=== PATIENT | female | born 1970 | race Two or more races ===

== ENCOUNTER → 2024-01-07 15:08 | Outpatient (REF) | payer OTHER, SELFPAY | LOC: WDC 15:08 | PROVIDERS: ATTENDING PHYSICIAN Obstetrics & Gynecology Gynecology; FAMILY PHYSICIAN Family Medicine | DX: Z12.31 Encounter for screening mammogram for malignant neoplasm of breast (principal) | CPT/HCPCS: 77063; 77067 ==

== ENCOUNTER → 2024-06-21 09:40 | Outpatient (REF) | payer OTHER, SELFPAY | LOC: RST 09:40 | PROVIDERS: ATTENDING PHYSICIAN Family Medicine | DX: R13.12 Dysphagia, oropharyngeal phase (principal); M25.561 Pain in right knee; M25.562 Pain in left knee | CPT/HCPCS: 73564; 74230; 92611 ==

== ENCOUNTER 2024-09-09 06:49 | Emergency (ER) | payer OTHER, SELFPAY ==
[2024-09-09 06:52] VITALS: BP 136/84
[2024-09-09 07:30] VITALS: BMI 25.3
--- NOTE | 2024-09-09 07:31 | ED.GENMED ---
History of Present Illness
General
Chief Complaint: Urinary Symptoms
Source: patient
Exam Limitations: none
Time Seen by Provider: 09/09/24 07:28
Nursing documentation reviewed up to this point in time: agreed with
History of Present Illness
History of Present Illness:
53-year-old female with history of palpitations on metoprolol 50 mg daily presents for burning with urination and blood in her urine since last night. She has experienced mild suprapubic pain but not there now. Denies nausea or vomiting. Denies
fever or chills.
Past History
Past History
ED Past Medical History: Arrthythmia (Tachycardia)
Social History
Tobacco: Non-smoker
Alcohol: None
Personal:
Living: with family
Employment: Not employed
Review of Systems
Review of Systems
Allergies reviewed?: Yes
All Other Systems: ROS reviewed and negative except as documented in HPI and ROS
Constitutional: Denies fever or chills
Respiratory: Denies trouble breathing
Cardiac: Denies chest pain
ABD/GI: Denies abdominal pain, nausea, vomiting, diarrhea or anorexia
: Reports dysuria and bleeding (Bloody urine); Denies frequency, flank pain, difficulty voiding or urgency
Musculoskeletal: Reports no symptoms
Skin: Reports no symptoms
Phy Exam
Physical Exam
Physical Exam:
GENERAL: No acute distress. A&Ox3.
CONSTITUTIONAL: Afebrile.
EYES: clear, conjunctivae normal
ENMT: moist mucus membranes
RESPIRATORY: Regular respirations, nonlabored, lungs clear.
CARDIOVASCULAR: Regular rate and rhythm, no murmurs, no rubs.
GI: Soft, nontender, normal BS
MUSCULOSKELETAL: Moves with ease. Well perfused.
SKIN: Warm, dry, pink
PSYCH: Normal mood and affect. Well kept, interactive and appropriate
NEUROLOGIC: Awake, alert and oriented. No focal neurological deficits
Course
Orders/Labs/Results
Orders:
Orders
09/09/24 07:26
Urinalysis Reflex To Culture Urgent
Date Specimen was Collected: 09/09/24
Time Specimen was Collected: :24
Urine Microscopic Reflex Cult Urgent
Urine Culture Urgent
ALIN Source: U
Specimen Description:
Date Specimen was Collected: 09/09/24
Time Specimen was Collected: :24
09/09/24 08:04
CT Abd/pel Without Iv Or Oral Urgent
Comment:
Reason For Exam: Hematuria, left abdominal pain
Abnormal Lab Results
09/09/24
07:26
Ur Occult Blood Reflex 4+ A
(Negative)
Leukocyte Esterase Rfl 2+ A
(Negative)
Urine WBC (Reflex) 16-20 A /HPF
(0-5)
Urine Albumin (Reflex) 1+ A
(Neg - Trace)
Vital Signs
Initial and Last Documented VS:
Initial Vital Signs
Temp Pulse Resp BP Pulse Ox
98.5 F 101 18 136/84 100
09/09/24 06:52 09/09/24 06:52 09/09/24 06:52 09/09/24 06:52 09/09/24 06:52
Last Documented Vital Signs
Temp Pulse Resp BP Pulse Ox
98.5 F 91 22 119/77 99
09/09/24 06:52 09/09/24 08:01 09/09/24 08:01 09/09/24 08:01 09/09/24 08:01
MDM/Problems Addressed
Differential Diagnosis Includes:
UTI, kidney stone
MDM/Problems Addressed:
53-year-old female with history of palpitations on metoprolol 50 mg daily presents for burning with urination and blood in her urine since last night. She has experienced mild suprapubic pain but not there now. Denies nausea or vomiting. Denies
fever or chills.
Afebrile, NAD
9:00 AM:
UA shows plus for occult blood, negative nitrites 2+ leukocytes, 16-[address] abdomen pelvis radiology report read: IMPRESSION:
Urinary bladder wall thickening for which correlation with a urinalysis is recommended. No CT evidence for nephroureterolithiasis or hydronephrosis.
Rx for nitrofurantoin sent to her pharmacy
*Critical Care Note
Total Time (30-74mins, 75-104mins- exclusive of procedures): Not Applicable
ED Attending Note
-
Portions of this chart may have been created with voice recognition software.� Occasional wrong word or��sound alike� substitutions may have occurred due to the inherent limitations of voice recognition software.
Discharge Plan
Departure
Patient Disposition: Home (Routine Discharge)
Date of Disposition: 09/09/24
Time of Disposition: 09:07
Patient with high blood pressure during this ER visit?: No
Condition: Good
Discharge Problem:
Acute UTI
Instructions: Urinary Tract Infection, Adult (DC), Blood in the Urine (Hematuria), Adult (DC)
Prescriptions:
New
nitrofurantoin macrocrystal 100 mg capsule
100 mg PO BID 5 Days Qty: 10 0RF
No Action
pantoprazole 40 mg Tablet,Delayed Release (Dr/Ec)
40 mg PO DAILY
metoprolol succinate 25 mg Tablet Extended Release 24 Hr
25 mg PO DAILY
Referrals:
Yancy Anderson DO [Family Provider] - Call in 1-3 days for appt
Activity Restrictions/Additional Instructions:
As we discussed, you have a urinary tract infection
I sent a prescription to your pharmacy for the antibiotic nitrofurantoin 100 mg to take twice a day for 5 days
Doctor if your symptoms are not 100% improved within the next week
Return here immediately for fever above 100.5 that is not relieved with Tylenol or ibuprofen, vomiting, worsening pain, chills or feeling sicker in any way
When your final urine culture comes back in 2-3 days, we will notify you if any change in antibiotic needed.
Interventions
Interventions:
*Risk Screen - Suicide Last Done: 09/09/24 07:30
*General Assessment Last Done: 09/09/24 07:30
*Neglect/Abuse Screening Last Done: 09/09/24 07:30
ED- Fall Risk Assessment Last Done: 09/09/24 07:30
*ED COVID-19 Vaccine History Last Done: 09/09/24 07:30
*Nursing Disposition Last Done: 09/09/24 09:18
ED-Female Genitourinary Assessment Last Done: 09/09/24 07:30
Discharge Date and Time
Discharge Date/Time: 09/09/24 09:32
Print Language: CAMEROONIAN
[2024-09-09 07:36] LABS: Urine Albumin 1+ (Neg - Trace); Urine Bilirubin Negative (Negative); Urine Character Clear (Clear); Urine Color Yellow; Urine Glucose Negative (Negative); Urine Ketone Negative (Negative); Urine Leukocyte 2+ (Negative); Urine Nitrite Negative (Negative); Urine Occult Blood 4+ (Negative); Urine Specific Gravity 1.005 (<1.030); Urine Urobilinogen Negative (Neg - 1+); Urine pH 6.5 (5.0-9.0)
[2024-09-09 08:01] VITALS: BP 119/77
[2024-09-09 08:14] LABS: Urine Squamous Cell 0-2 /LPF (Few)
[2024-09-09 08:16] LABS: Urine Red Blood Cell 0-2 /HPF (0-2); Urine White Cell 16-20 /HPF (0-5)
== END 2024-09-09 09:32 | disposition home or self-care (01) ==
LOC: EMR 06:49
PROVIDERS: EMERGENCY PHYSICIAN Emergency Medicine; FAMILY PHYSICIAN Family Medicine
DX: N39.0 Urinary tract infection, site not specified (principal); R31.9 Hematuria, unspecified
CPT/HCPCS: 99284; 74176; 81003; 81015; 87077; 87086; 87186

== ENCOUNTER → 2025-02-06 13:19 | Outpatient (REF) | payer OTHER, SELFPAY | LOC: WDC 13:19 | PROVIDERS: ATTENDING PHYSICIAN Obstetrics & Gynecology Gynecology; FAMILY PHYSICIAN Family Medicine | DX: Z12.31 Encounter for screening mammogram for malignant neoplasm of breast (principal); Z12.39 Encounter for other screening for malignant neoplasm of breast | CPT/HCPCS: 77063; 77067 ==